=== PATIENT | female | born 1990 | race American Indian/Alaskan Native ===

== ENCOUNTER 2016-09-08 21:52 | Emergency (ER) | payer SELFPAY ==
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
[2016-09-09] MEDS ORDERED: TYLENOL #3 PO ONE (02:48)
[2016-09-09] MEDS ORDERED: TRIPLE ANTIBIOTIC TP ONE (02:49)
[2016-09-09] MEDS ORDERED: NACL 0.9% 500 ML IR ONE (02:50)
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
[2016-09-09] MEDS ORDERED: NACL 0.9% IR ONE (04:50)
[2016-09-09 07:09] VITALS: BP 116/69
== END 2016-09-09 04:25 | disposition home or self-care (01) ==
LOC: ED 21:52
DX: S01.01XA Laceration without foreign body of scalp, initial encounter (principal); W22.8XXA Striking against or struck by other objects, initial encounter; Y93.89 Activity, other specified; Y99.8 Other external cause status; Y92.89 Other specified places as the place of occurrence of the external cause
CPT/HCPCS: 70450; 81025; A6250

== ENCOUNTER 2016-09-18 12:45 | Emergency (ER) | payer SELFPAY ==
[2016-09-18 14:08] VITALS: BP 110/73
[2016-09-18] MEDS ORDERED: BOOSTRIX IM ONE (14:08)
--- NOTE | 2016-09-18 14:28 | Emergency Department Report ---
Entered by SHAHID EPPS, acting as scribe for ROXANA CLARKE NP. Suture/Staple Removal - HPI Chief Complaint: Laceration/Recheck/Suture Stated Complaint: FOLLOW UP/HEAD INJURY/CARI Time Seen by Provider: 09/18/16 14:01 When Sutures or [place] Placed: 8-10 Days Ago (cari placed on 09/09/2016) Wound Location: Patient has stitches in 3 areas of the head: Front=4, Top=7, Back=3 ED Review of Systems ROS: Stated complaint: FOLLOW UP/HEAD INJURY/CARI Other details as noted in HPI Comment: All other systems reviewed and negative Constitutional: denies: chills, fever Eyes: denies: eye pain, eye discharge ENT: denies: ear pain, throat pain Respiratory: denies: cough, shortness of breath Cardiovascular: denies: chest pain Gastrointestinal: denies: abdominal pain, nausea, vomiting, diarrhea Genitourinary: denies: dysuria Musculoskeletal: denies: back pain Skin: other (Patient has 4 cari in the front of the head, 7 cari to the top of the head, and 3 cari to the back of the head). denies: rash Neurological: denies: headache, weakness, numbness Psychiatric: denies: anxiety, depression, suicidal thoughts ED Past Medical Hx - Surgical History Additional Surgical History: hernia repair - Social History Smoking Status: Never Smoker Substance Use Type: None - Medications Home Medications: Home Medications Medication Instructions Recorded Confirmed Last Taken Type Cephalexin [Keflex] 500 mg PO BID #12 capsule 09/09/16 Unknown Rx Ibuprofen [Motrin] 800 mg PO Q8HR PRN #30 tablet 09/09/16 Unknown Rx Suture Removal Exam - Exam General: Vital signs noted. No distress. Alert and acting appropriately. Patient had 4 stitches removed from the front of the head, 7 stitches removed from the top of the head, and 3 stitches removed from the back of the head Wound: Yes Tenderness, No Pathologic Erythema, No Drainage, No Pus, No Wound Dehiscence Other Systems: All other systems reviewed and are unremarkable. ED Course Vital Signs 09/18/16 14:04 Temperature 98 F Pulse Rate 62 Respiratory 16 Rate Blood Pressure 110/73 O2 Sat by Pulse 100 Oximetry - Reevaluation(s) Reevaluation #1: 09/18/16 14:25 Pt tolerated staple removal well. PT states she thinks her last TD vaccine was over ten years ago. TDAP given. - Procedure Description Procedures done: 14 cari removed from pt's scalp, no wound dehiscence noted. - Pulse Oximetry Interpretation Digit-Finger Initial Pulse Oximetry Readin Actions Taken: none ED Recheck MDM - Differential Diagnosis Suture/Staple Removal Critical Care Time: No Critical care attestation.: If time is entered above; I have spent that time in minutes in the direct care of this critically ill patient, excluding procedure time. ED Disposition Clinical Impression: Encounter for staple removal, Need for Tdap vaccination Disposition: TO HOME OR SELFCARE Is pt being admited?: No Does the pt Need Aspirin: No Condition: Stable Instructions: Suture Removal (ED) Referrals: BEKAH APPIAH MD [Staff Physician] - 3-5 Days Forms: Work/School Release Form(ED) Time of Disposition: 14:27 This documentation as recorded by the MICH jimenez MATHEW,accurately reflects the service I personally performed and the decisions made by me,ROXANA CLARKE, CNC SERVICE ENGINEER.
== END 2016-09-18 14:30 | disposition home or self-care (01) ==
LOC: ED 12:45
DX: Z48.02 Encounter for removal of sutures (principal)
CPT/HCPCS: 90471; 90715